=== PATIENT | male | born 1960 | race Hispanic/Latino ===

== ENCOUNTER → 2024-06-20 | Outpatient (CLI) | payer OTHER ==
[2024-06-20 12:18] LABS: ALBUMIN 3.9 g/dL (3.5-5.0); BILIRUBIN,TOTAL 0.6 mg/dL (0.2-1.0); CREATININE 1.1 mg/dL (0.5-1.3); POTASSIUM 4.7 mmol/L (3.5-5.1); TOTAL PROTEIN, SERUM 7.9 g/dL (6.0-8.3)
== END | disposition home or self-care (01) ==
LOC: LAB 08:47
PROVIDERS: ATTEND Internal Medicine Cardiovascular Disease
DX: E78.5 Hyperlipidemia, unspecified (principal); I25.84 Coronary atherosclerosis due to calcified coronary lesion; R09.89 Other specified symptoms and signs involving the circulatory and respiratory systems
CPT/HCPCS: 36415; 80053; 80061

== ENCOUNTER 2024-10-01 10:55 | Inpatient (IN) | payer OTHER ==
[~2024-10-01] VITALS: Ht 170.2 cm; Wt 57.4 kg
--- NOTE | 2024-10-01 11:00 | NUR ---
PT TO CT OF HEAD, AWAKE, ALERT, OX4, REPORTS GENERALIZED WEAKNESS AT THIS TIME
[2024-10-01 11:19] LABS: IMMATURE GRANULOCYTE ABSOLUTE 0.08 K/uL (0-1); NUCLEATED RED BLOOD CELLS 0.0 % (0.0-0.19); PLATELET COUNT (AUTO) 241 K/uL (130-400); RED BLOOD CELL COUNT(AUTO) 5.47 MIL/uL (4.50-6.20); RED CELL DISTRIBUTION WIDTH 13.3 % (11.0-15.5); WHITE BLOOD COUNT (AUTO) 11.0 K/uL (4.8-10.8)
--- NOTE | 2024-10-01 11:20 | HMCIMG ---
EXAM: CT Head Without IV contrast. CLINICAL HISTORY: SLURRED SPEECH TECHNIQUE: Axial computed tomography images of the head/brain without intravenous contrast. COMPARISON: None provided. FINDINGS: BRAIN: No evidence of acute hemorrhage. No mass lesion. No CT evidence for acute territorial infarct. No midline shift or extra-axial collections. VENTRICLES: No hydrocephalus. ORBITS: The orbits are unremarkable. SINUSES AND MASTOIDS: The paranasal sinuses and mastoid air cells are clear. BONES: No fracture. SOFT TISSUES: Unremarkable. IMPRESSION: No acute intracranial abnormality. /[place]
--- NOTE | 2024-10-01 11:23 | NUR ---
tele neuro at bedside evaluating patient
--- NOTE | 2024-10-01 11:32 | CONS ---
CONSULT NOTE: [place] [facility] Note # Demographics Consult Type: Acute Stroke Level 2 (4.5-24 hrs) Patient Location: Emergency Room First Name: WOO Last Name: FER Date of : 1960 Age: 64 Gender: Male Facility: [facility] Time of Initial Page (Central Time): 10/01/2024 11:16 Time of Return Call (Central Time): 10/01/2024 11:17 # HPI Chief Complaint: Unable to get up History: 64 y/o M woke up at 2 AM this morning, rolled over, and couldn't get up from bed. Now feels well. this morning noticed abnormal gait and confusion. # Scores Time of exam and NIHSS (Central Time): 10/01/2024 11:22 Level of Consciousness 1a: [0] = Alert; keenly responsive LOC Questions 1b: [1] = Answers one correctly LOC Commands 1c: [0] = Performs both tasks correctly Best Gaze 2: [0] = Normal Visual 3: [0] = No visual loss Facial Palsy 4: [0] = Normal symmetrical movements Motor Arm Left 5a: [0] = No drift Motor Arm Right 5b: [0] = No drift Motor Leg Left 6a: [0] = No drift Motor Leg Right 6b: [0] = No drift Limb Ataxia 7: [0] = Absent Sensory 8: [0] = Normal Best Language 9: [0] = No aphasia Dysarthria 10: [0] = Normal Extinction and Inattention 11: [0] = No abnormality NIHSS Total: 1 # Data Head CT: - no bleed - per radiologist read # Assessment Impression: Possible TIA/minor stroke, though metabolic encephalopathy also possible. # Plan Thrombolytic/Intervention: NOT IV Thrombolysis or IA Intervention candidate Thrombolytic Exclusion: > 4.5 hours Intraarterial Exclusion: doubt LVO based on clinical exam Other: - If patient has any neurological deterioration please call me back immediately - I have discussed my recommendations with the referring provider Additional Recommendations: Infectious/metabolic per ED/Primary team. Consider brain MRI with further stroke w/u to follow if positive. # Logistics Attestation of consult completion: The patient is located at: [facility]. Facility staff participated in the visit. I performed this telemedicine visit from my offsite office utilizing interactive 2 way audio and visual telecommunication technology. Total time spent in telemedicine encounter: I spent 15 minutes reviewing clinical data and/or imaging, obtaining history, examining the patient, communicating with the onsite care team, and in preparation of this report. # Demographics First Name: WOO Last Name: FER Facility: [facility] BLACK CHAPPELL MD Oct 01, 2024 11:32
[2024-10-01 11:34] LABS: ALCOHOL, BLOOD < 3 mg/dL (0-10); CREATINE KINASE, TOTAL 50 U/L (21-232); CREATININE 1.2 mg/dL (0.5-1.3); GLOMERULAR FILTR. RATE CALC 68 mL/min (>90); SODIUM SERUM 135 mmol/L (136-145); UREA NITROGEN, BLOOD 18 mg/dL (7-18)
[2024-10-01 11:37] LABS: GLUCOSE,RANDOM 445 mg/dL (70-105)
[2024-10-01] MEDS: LACTATED RINGERS 1000ML 1,000 ML IV ONE (12:08)
--- NOTE | 2024-10-01 12:14 | HMCIMG ---
EXAM: CR Chest, 1 View. CLINICAL HISTORY: SLURRED SPEECH COMPARISON: None provided. FINDINGS: LUNGS: The lungs show no infiltrate or other acute finding. PLEURAL SPACES: No pleural effusion or pneumothorax. MEDIASTINUM: The cardiomediastinal silhouette is within normal limits. BONES: No acute osseous abnormality. IMPRESSION: No acute cardiopulmonary pathology is evident. /[place]
[2024-10-01 12:25] LABS: APPEARANCE,URINE CLEAR (CLEAR); GLUCOSE, URINE (UA) >=1000 mg/dL (NEGATIVE); LEUKOCYTE ESTERASE ,URINE 25 Leu/uL (NEGATIVE); NITRATE,URINE NEGATIVE (NEGATIVE); OCCULT BLOOD,URINE NEGATIVE (NEGATIVE); SQUAMOUS EPITHELIAL CELL,UR RARE /HPF (0-2)
[2024-10-01 12:34] LABS: INR 0.99 (0.85-1.15)
--- NOTE | 2024-10-01 13:22 | HMCIMG ---
EXAM: MR Brain without Intravenous Contrast. CLINICAL HISTORY: Stroke. TECHNIQUE: Magnetic resonance images of the brain without intravenous contrast in multiple planes. CONTRAST: None. COMPARISON: 10/01/2024. FINDINGS: BRAIN: No restricted diffusion to indicate acute infarction. No intracranial mass or hemorrhage. No midline shift or extra-axial fluid collection. No cerebellar tonsillar ectopia. No abnormal enhancement. The central arterial and venous flow voids are patent. VENTRICLES: No hydrocephalus. ORBITS: The orbits are normal. SINUSES AND MASTOIDS: Extensive air-fluid levels in the bilateral maxillary and ethmoid sinuses suggest sinusitis. BONES: No acute fracture or focal osseous lesion. COMPARISON: Findings similar to CT head 10/01/2024. IMPRESSION: 1. No acute findings. 2. Extensive air-fluid levels in the bilateral maxillary and ethmoid sinuses suggest sinusitis. /[place]
--- NOTE | 2024-10-01 14:22 | ERN ---
General Chief Complaint: Stroke Symptoms Stated Complaint: STROKE SYMPTOMS Time Seen by MD: 11:13 History of Present Illness Initial Comments 64-year-old male, history of diabetes, high cholesterol, presents for altered mentation. Patient went to bed last night in his normal state of health. Upon awakening this morning, his noticed that he was confused and his entire body was trembling. She said that he was continually reaching towards his feet and appeared confused. She reports that he was very shaky and had a near fall. She reports that he was slurring his words. She did not notice any deficits to arms or legs. No recent head injury. The patient reports recent senstations of weakness and dry mouth. Here in the ER, the patient is answering all questions appropriately but appears to be slow to respond compared to usual. He denies any headache, chest pains, vision changes, or any other complaints at this time. He reports feeling very thirsty. Allergies: Coded Allergies: No Known Drug Allergies (Unverified Allergy, Unknown, 10/01/24) Past Medical History Past Medical History: Diabetes-Type II Past Surgical History: None ROS Dictation CONSTITUTIONAL: weakness, tremors HEAD/FACE: Dry mouth EENT: No eye pain, no blurred vision, no tearing, no double vision, no ear pain, no ear discharge, no nose pain, no nasal congestion, no throat pain, no throat swelling, no mouth pain. RESPIRATORY: No cough, no orthopnea, no SOB, no stridor, no wheezing. CARDIOVASCULAR: No chest pain, no edema, no palpitations, no syncope. GASTROINTESTINAL/ABDOMINAL: No abdominal pain, no constipation, no diarrhea, no nausea, no vomiting. GENITOURINARY: No abnormal discharge, no dysuria, no hematuria. No complaints of pain in the genitals. Frequent urination MUSCULOSKELETAL: No back pain, no gout, no joint pain, no joint swelling, no muscle pain, no muscle stiffness, no neck pain. INTEGUMENTARY: No change in color, no change in hair/nails, no dryness, no lesion, no lumps, no rash. NEUROLOGICAL/PSYCH: No anxiety, not depressed, no emotional problem, no h eadache, no numbness, no pre-existing deficit, no history of seizures, no tremors, no weakness. HEMATOLOGIC/LYMPHATIC: Not anemic, no history of blood clots, no apparent bleeding, no bruising, glands not swollen. All Systems Negative, Except as Noted. NIH STROKE SCALE: NIH STROKE SCALE Response (Comments) Value Level of Consciousness Alert 0 Ask patient month and their age Answers both correct 0 Command to open eyes, make fist and let go Obeys both correct 0 Best gaze (horizontal eye movement) Normal 0 Visual Field Testing No Visual Field Loss 0 Facial Paresis Normal / Symmetrical 0 Motor Function - Left Arm Normal 0 Motor Function - Right Arm Normal 0 Motor Function - Left Leg Normal 0 Motor Function - Right Leg Normal 0 Limb Ataxia No Ataxia 0 Sensory-pin prick to arms, legs, trunk and face Normal 0 Best Language (describe picture, name items and read) No Aphasia 0 Dysarthria (read several words) Normal Articulation 0 Extinction and Inattention Normal 0 Total Results Laboratory and Microbiology Lab and Micro Result Laboratory Tests Test 10/01/24 11:06 10/01/24 11:10 10/01/24 11:50 Whole Blood Glucose 398 MG/DL (70-110) H Bedside Glucose Comment Notified Nurse White Blood Count 11.0 K/uL (4.8-10.8) H Red Blood Count 5.47 MIL/uL (4.50-6.20) Hemoglobin 14.1 g/dL (14.0-18.0) Hematocrit 40.6 % (42-54) L Mean Corpuscular Volume 74.2 fL (79-99) L Mean Corpuscular Hemoglobin 25.8 pg (27.0-33.0) L Mean Corpuscular Hemoglobin Concent 34.7 g/dL (32.0-36.0) Red Cell Distribution Width 13.3 % (11.0-15.5) Platelet Count 241 K/uL (130-400) Mean Platelet Volume 9.1 fL (7.5-10.5) Immature Granulocyte % (Auto) 0.7 % (0-1) Neutrophils (%) (Auto) 86.4 % (40.0-77.0) H Lymphocytes (%) (Auto) 5.9 % (21.0-51.0) L Monocytes (%) (Auto) 6.2 % (3.0-13.0) Eosinophils (%) (Auto) 0.4 % (0.0-8.0) Basophils (%) (Auto) 0.4 % (0.0-5.0) Neutrophils # (Auto) 9.5 K/uL (1.8-7.7) H Lymphocytes # (Auto) 0.7 K/uL (1.0-4.8) L Monocytes # (Auto) 0.7 K/uL (0.1-1.0) Eosinophils # (Auto) 0.04 K/uL (0.00-0.70) Basophils # (Auto) 0.04 K/uL (0.00-0.20) Absolute Immature Granulocyte (auto 0.08 K/uL (0-1) Nucleated Red Blood Cells 0.0 % (0.0-0.19) White Cell Morphology Comment See comments Prothrombin Time 10.5 SEC (9.6-11.6) Prothromb Time International Ratio 0.99 (0.85-1.15) Activated Partial Thromboplast Time 24.7 SEC (26.3-35.5) L Sodium Level 135 mmol/L (136-145) L Potassium Level 4.7 mmol/L (3.5-5.1) Chloride Level 98 mmol/L (101-111) L Carbon Dioxide Level 23 mmol/L (21-32) Blood Urea Nitrogen 18 mg/dL (7-18) Creatinine 1.2 mg/dL (0.5-1.3) Glomerular Filtration Rate Calc 68 mL/min (>90) Random Glucose 445 mg/dL (70-105) *H Whole Blood Ketones Quantitative 3.7 mmol/L (0.0-0.6) H Lactic Acid Level 2.3 mmol/L (0.8-2.5) Total Calcium 9.3 mg/dL (8.5-10.1) Magnesium Level 2.00 mg/dL (1.80-2.40) Ammonia < 10 umol/L (11-32) L Total Creatine Kinase 50 U/L (21-232) Troponin I High Sensitivity 4.0 ng/L (4-75) Serum Alcohol < 3 mg/dL (0-10) Urine Color COLORLESS (YELLOW) Urine Appearance CLEAR (CLEAR) Urine pH 5.0 (5.0-8.0) Urine Specific [place] 1.022 (1.001-1.031) Urine Protein NEGATIVE mg/dL (NEGATIVE) Urine Glucose (UA) >=1000 mg/dL (NEGATIVE) H Urine Ketones 40 mg/dL (NEGATIVE) H Urine Occult Blood NEGATIVE (NEGATIVE) Urine Nitrate NEGATIVE (NEGATIVE) Urine Bilirubin NEGATIVE mg/dL (NEGATIVE) Urine Urobilinogen 0.2 mg/dL (0.2-1.0) Urine Leukocyte Esterase 25 [place]/uL (NEGATIVE) H Urine RBC 2-5 /HPF (0-1) H Urine WBC 2-5 /HPF (0-1) H Urine Squamous Epithelial Cells RARE /HPF (0-2) Urine Bacteria RARE /HPF (None Seen) MDM CC: altered mentation, tremors, generalized weakness Historian: Patient Comorbidities: Diabetes, high cholesterol Limitations by social determinants: None Differential diagnosis: Strokes, metabolic abnormality, infection, other Initially the presentation was unclear. The reports that patient was possibly slurring his words here in the ER. Patient was activated as a Code Brain. Last known well was 09/30/2024 in the evening. Initial NIHSS of 0. GCS of 15 with no cranial nerve deficits. Mild tremors. Vital signs afebrile initially, did develop a fever here in the ER. Other vital signs stable. Spoke with the teleneurologist at 11:25 a.m.. Patient does not appear to be a good candidate for TNK since it is a wake-up stroke, symptoms likely present for longer than 4.5 hours. We do agree that at this time we have a higher suspicion for metabolic disorder than an acute stroke. He does recommend an MRI. Did not need to get CT angiogram at this time. MRI ordered. EKG: Sinus tachycardia rate 104 with a normal axis good R-wave progression intervals are stable no STEMI. Independently interpreted by me. CT head per my independent interpretation shows no acute bleeding. Confirmed by radiologist. Labs (independently ordered and interpreted by me): WBCs 11 left shift no bands. Electrolytes stable. Urinalysis does show glucose some leuk esterase. Chemistry shows hyperglycemia. Treatment in ED: 1 L normal saline, insulin IV Consultation: Hospitalist for admission. ED Course Orders Procedure Category Date Status Time Cbc With Differential LAB 10/01/24 Complete 11:08 12 Lead Ekg Tracing- EKG 10/01/24 Logged Technical 11:08 Chest 1vw RAD 10/01/24 Resulted 11:08 Ct Head/Brain W/O CT 10/01/24 Resulted Contrast 11:08 Alcohol, Blood LAB 10/01/24 Complete 11:11 Ammonia LAB 10/01/24 Complete 11:11 Cardiac Panel LAB 10/01/24 Complete 11:11 Magnesium LAB 10/01/24 Complete 11:11 Prothrombin Time With LAB 10/01/24 Complete INR 11:11 Partial LAB 10/01/24 Complete Thromboplastin Time 11:11 Basic Metabolic Panel LAB 10/01/24 Complete 11:10 Mr Brain Wo Con MRI 10/01/24 Resulted 11:29 Urinalysis LAB 10/01/24 Complete W/Microscopic 11:31 Lactic Acid LAB 10/01/24 Complete 11:31 Blood Cult PREM 10/01/24 In Process 11:31 Ketone Blood LAB 10/01/24 Complete Quantitative 11:31 Lactated Ringers PHA 10/01/24 Complete 1000ml (Lactated 12:00 Insulin Regular, PHA 10/01/24 Complete Human 3ml (Humulin R 12:00 Admit Orders ADM 10/01/24 Transmitted 14:17 Endocrinology Consult CONPHYSVC 10/01/24 Transmitted 14:17 Famotidine 20mg Tab PHA 10/01/24 In Process (Pepcid 20mg Tab) 21:00 Acetaminophen 325 Tab PHA 10/01/24 In Process (Tylenol 325mg Tab 14:30 Ondansetron 4mg Inj PHA 10/01/24 In Process (Zofran 4mg Inj) 14:30 Pt Eval And Treat PT 10/01/24 Transmitted 14:[address] 10/01/24 Transmitted Order 14:17 Initiate BASILIA 10/01/24 In Process Hyperglycemia Protoco 14:17 Insulin Regular, PHA 10/01/24 In Process Human 3ml (Humulin R 16:30 Initiate Po BASILIA 10/01/24 In Process Hypokalemia Protoc 14:17 Potassium Chloride PHA 10/01/24 In Process 20meq/100ml ([place] 14:30 Potassium Chl 10% PHA 10/01/24 In Process Elixir 20meq (Kcl 10% 14:30 Potassium Chloride PHA 10/01/24 In Process 20meq Er (K-Dur/Klor- 14:30 Notify Physician If CPOE 10/01/24 Transmitted There Is 14:17 Notify Md On The Next CPOE 10/01/24 Transmitted 14:17 Notify Md On The CPOE 10/01/24 Transmitted Next(Cont.) 14:17 Magnesium 2gm Premix PHA 10/01/24 In Process 50ml (Magnesium 2gm 14:30 Apply Scds CPOE 10/01/24 Transmitted 14:17 Hydralazine 20mg Inj PHA 10/01/24 In Process (Apresoline 20mg In 14:30 Lactulose 20 Gm/30 Ml PHA 10/01/24 In Process Udcup (Constulose 14:30 Blood Sugar Q3h(Keep CPOE 10/01/24 Transmitted 110-180) 14:24 Current Medications Medications (Trade) Dose Ordered Sig/Loree Route PRN Reason Start Time Stop Time Status Last Admin Dose Admin Acetaminophen (TYLenol 325MG TAB) 650 mg Q4H PRN PO TEMPERATURE GREATER THAN 101.5 10/01/24 14:30 10/31/24 14:29 Famotidine (Pepcid 20mg Tab) 20 mg BID PO 10/01/24 21:00 10/31/24 20:59 UNV Hydralazine HCl (APRESOLine 20MG INJ) 20 mg Q4H PRN IV ADMINISTER FOR SBP > 160 10/01/24 14:30 10/31/24 14:29 Insulin Human Regular (humuLIN R 100 UNIT/ML 3ML) 5 unit ONCE ONCE IV 10/01/24 12:00 10/01/24 12:01 DC 10/01/24 12:12 Insulin Human Regular (humuLIN R 100 UNIT/ML 3ML) INSULIN SLIDING SCAL... ACHS SQ 10/01/24 16:30 10/31/24 16:29 Lactated Ringer's 1,000 ml @ 0 mls/hr ONCE ONCE IV 10/01/24 12:00 10/01/24 12:01 DC 10/01/24 12:08 Lactulose (Constulose 20gm/ 30ml Udcup) 20 gm BID PRN PO CONSTIPATION 10/01/24 14:30 10/31/24 14:29 UNV Magnesium Sulfate 50 ml @ 0 mls/hr PROTOCOL PRN IV LOW MAG LEVEL 10/01/24 14:30 10/31/24 14:29 Ondansetron HCl (zoFRAN 4MG INJ) 4 mg Q6H PRN IVP NAUSEA/VOMITING 10/01/24 14:30 10/31/24 14:29 Potassium Chloride 100 ml @ 100 mls/hr AD PRN IV POTASSIUM PROTOCOL 10/01/24 14:30 10/31/24 14:29 Potassium Chloride (K-Dur/Klor-Con 20meq) 20 meq AD PRN PO POTASSIUM PROTOCOL 10/01/24 14:30 10/31/24 14:29 Potassium Chloride (KCl 10% Elixir 20meq/15ml) 20 meq AD PRN PO POTASSIUM PROTOCOL 10/01/24 14:30 10/31/24 14:29 Vital Signs Date Time Temp Pulse Resp B/P (MAP) Pulse Ox O2 Delivery O2 Flow Rate FiO2 10/01/24 12:26 110 18 127/61 96 Room Air* 0 21 10/01/24 11:19 104 15 147/73 100 Room Air* 0 21 10/01/24 11:00 101.5 110 18 116/67 99 Room Air DX & DISP Disposition: Inpatient Departure Impression: Primary Impression: Hyperglycemia Additional Impression: Encephalopathy Critical Time: 30 minutes (Critical Care Procedure NoteAuthorized and Performed by: meTotal critical care time: Approximately 36 minutesDue to a high probability of clinically significant, life threatening deterioration, the patient required my highest level of preparedness to intervene emergently and I personally spent this critical care time directly and personally managing the patient. This critical care time included obtaining a history; examining the patient; pulse oximetry; ordering and review of studies; arranging urgent treatment with development of a management plan; evaluation of patient's response to treatment; frequent reassessment; and, discussions with other providers.This critical care time was performed to assess and manage the high probability of imminent, life-threatening deterioration that could result in multi-organ failure. It was exclusive of separately billable procedures and treating other patients and teaching time.Please see MDM section and the rest of the note for further information on patient assessment and treatment.) Condition: Stable Referrals: SAKINA HAYS MD (PCP) NATIVIDAD ROSAS DO Oct 01, 2024 14:22
--- NOTE | 2024-10-01 14:28 | HP ---
[facility] HISTORY AND PHYSICAL Date of Service: Oct 01, 2024 Time of Service: 14:22 HISTORY OF PRESENT ILLNESS: [ ] PCP: Flaca Arora MD admission date: 10/01/24 CC: Stroke symptoms: confused This is a 64-year-old male with a significant medical history of diabetes, hyperlipidemia presents in ED with altered mentation. Onset earlier this morning 2:00 a.m. per significant other noticed he was confused and that his body was trembling. He was not his normal self and decided to bring him to ER for further evaluation and workup. There was no focal or sensory deficits on arrival no recent head injury. However patient had dental work cleaning and one implant broke placed with temporary filling done a week ago. Patient is feeling generalized body weakness and dry mouth. He denies headache, chest pain, vision changes or any complaints at the time he came to ER. He reports being very thirsty ER workup CT head was negative. Blood sugars was elevated 445 Ketones Quant: 3.7. Tele neuro was consulted. His evaluation NIHSS was 1, his recommendations possible TIA versus metabolic encephalopathy. 1430 MRI was negative for stroke. Patient now having fevers 101.5 We will do a septic workup, blood cultures in process. Rocephin2 g x 1. Patient was seen in ED patient answer all my questions appropriately. REVIEW OF SYSTEMS a 12 point ROS was obtained all relevant positive documented otherwise ROS negative PAST MEDICAL HISTORY: [ ] Diabetes, hyperlipidemia, hypertension PAST SURGICAL HISTORY: [ ] Negative PAST SOCIAL HISTORY: [ ] Denies smoking tobacco products and alcohol use FAMILY HISTORY: [ ] Diabetes Coded Allergies: No Known Drug Allergies (Unverified Allergy, Unknown, 10/01/24) PHYSICAL EXAM GENERAL APPEARANCE: The patient is awake, alert, and oriented, in no acute cardiopulmonary distress. NEUROLOGICAL: Cranial nerves II-XII grossly intact. Motor is 5/5 in bilateral upper and lower extremities proximal to distal. No sensory deficits. HEENT: Face is symmetric. Pupils are equal and reactive. Extraocular movements are intact. NECK: Supple. No JVD. No thyromegaly. No submental, submandibular, pre- /postauricular, occipital or supraclavicular lymphadenopathy. CHEST: Normal chest expansion. No Telemetry. LUNGS: Absence of any rales, rhonchi or any wheezing. CARDIOVASCULAR: Regular. S1 and S2 normal. No appreciable rubs, murmurs or gallops. ABDOMEN: Soft, nontender, and nondistended. There is no rebound, voluntary guarding, or rigidity. : Deferred. No Castillo. EXTREMITIES: Non-edematous and not cyanotic. No clubbing. Good capillary refill. SKIN: No skin breakdown. Vital Sign (Last 24 Hours) 10/01/24 10/01/24 11:00 12:26 Temp 101.5 Pulse 110 Resp 18 B/P (MAP) 127/61 Pulse Ox 96 O2 Delivery Room Air* O2 Flow Rate 0 FiO2 21 LABS: Laboratory: Test 10/01/24 11:50 10/01/24 11:10 10/01/24 11:06 Range/Units Urine Color COLORLESS YELLOW Urine Appearance CLEAR CLEAR Urine pH 5.0 5.0-8.0 Urine Specific [place] 1.022 1.001-1.031 Urine Protein NEGATIVE NEGATIVE mg/dL Urine Glucose (UA) >=1000 H NEGATIVE mg/dL Urine Ketones 40 H NEGATIVE mg/dL Urine Occult Blood NEGATIVE NEGATIVE Urine Nitrate NEGATIVE NEGATIVE Urine Bilirubin NEGATIVE NEGATIVE mg/dL Urine Urobilinogen 0.2 0.2-1.0 mg/dL Urine Leukocyte Esterase 25 H NEGATIVE Brannon/uL Urine RBC 2-5 H 0-1 /HPF Urine WBC 2-5 H 0-1 /HPF Urine Squamous Epithelial Cells RARE 0-2 /HPF Urine Bacteria RARE None Seen /HPF White Blood Count 11.0 H 4.8-10.8 K/uL Red Blood Count 5.47 4.50-6.20 MIL/uL Hemoglobin 14.1 14.0-18.0 g/dL Hematocrit 40.6 L 42-54 % Mean Corpuscular Volume 74.2 L 79-99 fL Mean Corpuscular Hemoglobin 25.8 L 27.0-33.0 pg Mean Corpuscular Hemoglobin Concent 34.7 32.0-36.0 g/dL Red Cell Distribution Width 13.3 11.0-15.5 % Platelet Count 241 130-400 K/uL Mean Platelet Volume 9.1 7.5-10.5 fL Immature Granulocyte % (Auto) 0.7 0-1 % Neutrophils (%) (Auto) 86.4 H 40.0-77.0 % Lymphocytes (%) (Auto) 5.9 L 21.0-51.0 % Monocytes (%) (Auto) 6.2 3.0-13.0 % Eosinophils (%) (Auto) 0.4 0.0-8.0 % Basophils (%) (Auto) 0.4 0.0-5.0 % Neutrophils # (Auto) 9.5 H 1.8-7.7 K/uL Lymphocytes # (Auto) 0.7 L 1.0-4.8 K/uL Monocytes # (Auto) 0.7 0.1-1.0 K/uL Eosinophils # (Auto) 0.04 0.00-0.70 K/uL Basophils # (Auto) 0.04 0.00-0.20 K/uL Absolute Immature Granulocyte (auto 0.08 0-1 K/uL Nucleated Red Blood Cells 0.0 0.0-0.19 % White Cell Morphology Comment See comments Prothrombin Time 10.5 9.6-11.6 SEC Prothromb Time International Ratio 0.99 0.85-1.15 Activated Partial Thromboplast Time 24.7 L 26.3-35.5 SEC Sodium Level 135 L 136-145 mmol/L Potassium Level 4.7 3.5-5.1 mmol/L Chloride Level 98 L 101-111 mmol/L Carbon Dioxide Level 23 21-32 mmol/L Blood Urea Nitrogen 18 7-18 mg/dL Creatinine 1.2 0.5-1.3 mg/dL Glomerular Filtration Rate Calc 68 >90 mL/min Random Glucose 445 *H 70-105 mg/dL Whole Blood Ketones Quantitative 3.7 H 0.0-0.6 mmol/L Lactic Acid Level 2.3 0.8-2.5 mmol/L Total Calcium 9.3 8.5-10.1 mg/dL Magnesium Level 2.00 1.80-2.40 mg/dL Ammonia < 10 L 11-32 umol/L Total Creatine Kinase 50 21-232 U/L Troponin I High Sensitivity 4.0 4-75 ng/L Serum Alcohol < 3 0-10 mg/dL Whole Blood Glucose 398 H 70-110 MG/DL Bedside Glucose Comment Notified Nurse DIAGNOSTICS / RADIOLOGY: [ ] ASSESSMENT: SIRs without organ dysfunction POA suspecting Sepsis POA febrile syndrome POA UTI POA Metabolic encephalopathy POA TIA rule out CVA POA uncontrolled DM type II hyperglycemia POA PLAN: [ ] Admit:PCCU condition:Guarded Status: FUll COde IVF:NS at 75 ml/hr Consultants; Tele Neuro, Screen And [employer]r antibiotics: Rocephin 2 gm now then 1 gm daily; will follow up blood cultures Sepsis workup: PCR: covid, influenza a/b, and strep B, UA Microbiology: blood cultures in process Imaging: carotid Doppler, Noted CT Head, MRI: both negative PT eval, Speech eval Labs cbc, cmp, mag+ Tsh , lipid panel, A1c blood sugar q3 ; Replace electrolytes as needed as per protocol to keep potassium above 4.0 magnesium 2.0. Home medications pending to be reviewed by RN nurse. PRN: MEDICATIONS Tylenol 650 mg po every 4 hrs for fever Zofran 4 mg IV every 6 hrs for n/v Hydralazine 5 mg IV every 4 hrs systolic pressure > 160 bowel regiment: lactulose 20 gm PO BID PRN constipation aspiration precaution ,HOB elevated fall precaution call light in reach. Supportive measures: DVT ppx, GI ppx all questions answered time spent: > 35 min Supervising MD: Dr. Castro c/d This document was generated in part using voice recognition software, occasional wrong word or sound alike substitutions may have occurred due to the inherent limitations of voice recognition software. Read the chart carefully and recognize using context, where the substitutions have occurred. Although every effort was made to edit the content, physician scribe and typing errors may occur ATTESTATION BY PHYSICIAN I have seen and examined the patient. I reviewed the documentation, medical decision making, and treatment plan as noted by the mid-level provider above. I agree with the findings and plan of care. CLOVER CASTRO MD ATTESTATION BY PHYSICIAN I have seen and examined the patient. I reviewed the documentation, medical decision making, and treatment plan as noted by the mid-level provider above. I agree with the findings and plan of care. CLOVER CASTRO MD, ELIZABETH NP Oct 01, 2024 14:28
[2024-10-01] MEDS ORDERED: PoTASSium chloRIDE 20MEQ ER 20 MEQ ERTAB PO PRN (14:30)
[2024-10-01] MEDS ORDERED: LACTULOSE 20 GM/30 ML UDCUP PO PRN (14:30)
[2024-10-01] MEDS ORDERED: PoTASSium chl 10% ELIXIR 20MEQ 20 MEQ/15 ML UDCUP PO PRN (14:30)
[2024-10-01] MEDS ORDERED: MAGNESIUM 2GM PREMIX 50ML 50 ML IV PRN (14:30)
[2024-10-01] MEDS: 0.9%NACL 1000ML 1,000 ML IV SCH (15:32)
[2024-10-01 16:18] LABS: INFLUENZA TYPE A Negative For Type A (NEGATIVE); INFLUENZA TYPE B Negative For Type B (NEGATIVE)
[2024-10-01 16:27] LABS: COVID19 (SARS ANTIGEN RAPID) POSITIVE FOR SARS AG (NEGATIVE)
--- NOTE | 2024-10-01 16:30 | NUR ---
BEDSIDE SWALLOW EVAL COMPLETED. No s/s of aspiration. Recommend regular solids, thin liquids and pills whole with liquids as tolerated. DIRECTOR OF RECRUITING reviewed results and recommendations with patient, and nurse Adolfo. DIRECTOR OF RECRUITING educated patient on risks and consequences of aspiration. Speech therapy not warranted at this time. All questions answered. Addendum: 10/01/[address] [facility] Amended: Links added.
--- NOTE | 2024-10-01 16:35 | NUR ---
SPEECH, LANGUAGE, AND COGNITIVE LINGUISTIC EVALUATION COMPLETED. Pt AT BASELINE EVALUATION: Pt AAOX4. PER , PATIENT IS AT BASELINE WITH COGNITION. REPORTS THAT FOR A FEW MONTHS AGO ALREADY, PATIENT OCCASIONALLY FORGETS TOPICS OF CONVERSATIONS THEY PREVIOUSLY HAD. FOOD SCIENCE TECHNICIAN RECOMMENDED PATIENT TO SEEK MD CONSULT WITH NEUROLOGIST OUTPATIENT TO FURTHER EVALUATE SLOW PROGRESSION OF SHORT TERM MEMORY DEFICITS. DURING EVALUATION, Pt EFFECTIVELY EXPRESSED WANTS AND NEEDS WITH CLEAR SPEECH INTELLIGIBILITY. Pt FOLLOWED BASIC 1-2 STEP COMMANDS, ANSWERED WH QUESTIONS, AND RESPONDED APPROPRIATELY TO YES/NO QUESTIONS. Pt's SPEECH, LANGUAGE, AND COGNITIVE LINGUISTIC SKILLS ARE CURRENTLY AT BASELINE PRIOR LEVEL OF FUNCTION. SKILLED ST SERVICES NOT WARRANTED AT THIS TIME. FOOD SCIENCE TECHNICIAN REVIEWED RESULTS AND RECOMMENDATIONS WITH PATIENT, FAMILY MEMBER, AND NURSE EWELINA. ALL QUESTIONS ANSWERED AT THIS TIME. Addendum: 10/02/[address] Amended: Links added.
--- NOTE | 2024-10-01 16:37 | NUR ---
DCP: HOME Pt currently lives with sps in their home. Pt does not have any DME, home health, or provider services. Pt states that he complete ADLs independently. PCP is Ulysses Thayer and uses [facility] for any RX needs. At [place] pt will want to go home and family can assist with transportation. Addendum: 10/01/24 at 1641 by JANE SILVERMAN SS Amended: Links added.
[2024-10-01 17:55] VITALS: BP 110/61; PULSE 92; RESP 18; TEMP 98.4
[2024-10-01 18:11] VITALS: O2SAT 98
[2024-10-01] MEDS ORDERED: EMPA25TA PO (18:42)
[2024-10-01] MEDS ORDERED: METF-446 PO (18:42)
[2024-10-01] MEDS ORDERED: INSU3INS3 SQ (18:45)
[2024-10-01] MEDS ORDERED: CALC-866 PO (18:45)
[2024-10-01] MEDS ORDERED: OMEG100033 PO (18:45)
[2024-10-01] MEDS ORDERED: ASPI-1197 PO (18:45)
[2024-10-01] MEDS ORDERED: ROSU5TAB51 PO (18:46)
[2024-10-01 20:00] VITALS: O2SAT 98
[2024-10-01 20:12] VITALS: BP 133/61; PULSE 95; RESP 18; TEMP 98.4
[2024-10-01] MEDS: FAMOTIDINE 20MG TAB PO SCH (20:53)
[2024-10-01 21:38] VITALS: TEMP 98.9
[2024-10-02] VITALS (9 sets, daily range): BP systolic 111–128; BP diastolic 58–88; PULSE 52–90; RESP 18–20; TEMP 97.9–99; O2SAT 97–100
[2024-10-02 04:37] LABS: LDL DIRECT 40.0 mg/dL (0-99)
--- NOTE | 2024-10-02 06:21 | PN ---
[facility] PROGRESS NOTE Date of Service: Oct 02, 2024 Time of Service: 06:19 SUBJECTIVE: [ ] PCP: Flaca Arora MD admission date: 10/01/24 CC: Stroke symptoms: confused This is a 64-year-old male with a significant medical history of diabetes, hyperlipidemia presents in ED with altered mentation. Onset earlier this morning 2:00 a.m. per significant other noticed he was confused and that his body was trembling. He was not his normal self and decided to bring him to ER for further evaluation and workup. There was no focal or sensory deficits on arrival no recent head injury. However patient had dental work cleaning and one implant broke placed with temporary filling done a week ago. Patient is feeling generalized body weakness and dry mouth. He denies headache, chest pain, vision changes or any complaints at the time he came to ER. He reports being very thirsty ER workup CT head was negative. Blood sugars was elevated 445 Ketones Quant: 3.7. Tele neuro was consulted. His evaluation NIHSS was 1, his recommendations possible TIA versus metabolic encephalopathy. 10/02 patient tested positive for COVID-19. Negative for influenza a and B and strep. No fevers overnight room. Patient alert oriented x3. waiting for blood cultures. Given to extensive sinuitis we will get CT maxillofacial without contrast. REVIEW OF SYSTEMS a 12 point ROS was obtained all relevant positive documented otherwise ROS negative PHYSICAL EXAM GENERAL APPEARANCE: The patient is awake, alert, and oriented, in no acute cardiopulmonary distress. NEUROLOGICAL: Cranial nerves II-XII grossly intact. Motor is 5/5 in bilateral upper and lower extremities proximal to distal. No sensory deficits. HEENT: Face is symmetric. Pupils are equal and reactive. Extraocular movements are intact. NECK: Supple. No JVD. No thyromegaly. No submental, submandibular, pre- /postauricular, occipital or supraclavicular lymphadenopathy. CHEST: Normal chest expansion. No Telemetry. LUNGS: Absence of any rales, rhonchi or any wheezing. CARDIOVASCULAR: Regular. S1 and S2 normal. No appreciable rubs, murmurs or g allops. ABDOMEN: Soft, nontender, and nondistended. There is no rebound, voluntary gua rding, or rigidity. : Deferred. No Castillo. EXTREMITIES: Non-edematous and not cyanotic. No clubbing. Good capillary refill. SKIN: No skin breakdown. Vital Signs (last 8hr) Date Time Temp Pulse Resp B/P (MAP) Pulse Ox O2 Delivery O2 Flow Rate FiO2 10/02/24 05:08 98.6 90 18 121/60 96 Room Air 10/02/24 00:00 98.6 90 18 128/59 97 Room Air LABS: Laboratory: Test 10/02/24 05:35 10/02/24 03:43 10/01/24 15:40 10/01/24 15:35 Range/Units Whole Blood Glucose 143 #H 70-110 MG/DL Triglycerides Level 51 30-200 mg/dL Cholesterol Level 95 <200 mg/dL LDL Cholesterol 40 0-99 mg/dL HDL Cholesterol 48 29-71 mg/dL Thyroid Stimulating Hormone (TSH) 1.81 0.36-3.74 uIU/mL Lactic Acid Level 2.3 0.8-2.5 mmol/L Influenza Type A Antigen Negative For Type A NEGATIVE Influenza Type B Antigen Negative For Type B NEGATIVE SARS-CoV-2 Antigen (Rapid) POSITIVE FOR SARS AG *A NEGATIVE Group A Streptococcus Rapid negative NEGATIVE Test 10/01/24 11:50 10/01/24 11:10 10/01/24 11:06 Range/Units Urine Color COLORLESS YELLOW Urine Appearance CLEAR CLEAR Urine pH 5.0 5.0-8.0 Urine Specific [place] 1.022 1.001-1.031 Urine Protein NEGATIVE NEGATIVE mg/dL Urine Glucose (UA) >=1000 H NEGATIVE mg/dL Urine Ketones 40 H NEGATIVE mg/dL Urine Occult Blood NEGATIVE NEGATIVE Urine Nitrate NEGATIVE NEGATIVE Urine Bilirubin NEGATIVE NEGATIVE mg/dL Urine Urobilinogen 0.2 0.2-1.0 mg/dL Urine Leukocyte Esterase 25 H NEGATIVE [place]/uL Urine RBC 2-5 H 0-1 /HPF Urine WBC 2-5 H 0-1 /HPF Urine Squamous Epithelial Cells RARE 0-2 /HPF Urine Bacteria RARE None Seen /HPF White Blood Count 11.0 H 4.8-10.8 K/uL Red Blood Count 5.47 4.50-6.20 MIL/uL Hemoglobin 14.1 14.0-18.0 g/dL Hematocrit 40.6 L 42-54 % Mean Corpuscular Volume 74.2 L 79-99 fL Mean Corpuscular Hemoglobin 25.8 L 27.0-33.0 pg Mean Corpuscular Hemoglobin Concent 34.7 32.0-36.0 g/dL Red Cell Distribution Width 13.3 11.0-15.5 % Platelet Count 241 130-400 K/uL Mean Platelet Volume 9.1 7.5-10.5 fL Immature Granulocyte % (Auto) 0.7 0-1 % Neutrophils (%) (Auto) 86.4 H 40.0-77.0 % Lymphocytes (%) (Auto) 5.9 L 21.0-51.0 % Monocytes (%) (Auto) 6.2 3.0-13.0 % Eosinophils (%) (Auto) 0.4 0.0-8.0 % Basophils (%) (Auto) 0.4 0.0-5.0 % Neutrophils # (Auto) 9.5 H 1.8-7.7 K/uL Lymphocytes # (Auto) 0.7 L 1.0-4.8 K/uL Monocytes # (Auto) 0.7 0.1-1.0 K/uL Eosinophils # (Auto) 0.04 0.00-0.70 K/uL Basophils # (Auto) 0.04 0.00-0.20 K/uL Absolute Immature Granulocyte (auto 0.08 0-1 K/uL Nucleated Red Blood Cells 0.0 0.0-0.19 % White Cell Morphology Comment See comments Prothrombin Time 10.5 9.6-11.6 SEC Prothromb Time International Ratio 0.99 0.85-1.15 Activated Partial Thromboplast Time 24.7 L 26.3-35.5 SEC Sodium Level 135 L 136-145 mmol/L Potassium Level 4.7 3.5-5.1 mmol/L Chloride Level 98 L 101-111 mmol/L Carbon Dioxide Level 23 21-32 mmol/L Blood Urea Nitrogen 18 7-18 mg/dL Creatinine 1.2 0.5-1.3 mg/dL Glomerular Filtration Rate Calc 68 >90 mL/min Random Glucose 445 *H 70-105 mg/dL Whole Blood Ketones Quantitative 3.7 H 0.0-0.6 mmol/L Total Calcium 9.3 8.5-10.1 mg/dL Magnesium Level 2.00 1.80-2.40 mg/dL Ammonia < 10 L 11-32 umol/L Total Creatine Kinase 50 21-232 U/L Troponin I High Sensitivity 4.0 4-75 ng/L Serum Alcohol < 3 0-10 mg/dL Bedside Glucose Comment Notified Nurse Current Medications Medications (Trade) Dose Ordered Sig/Loree Route PRN Reason Start Time Stop Time Status Last Admin Dose Admin Acetaminophen (TYLenol 325MG TAB) 650 mg Q4H PRN PO TEMPERATURE GREATER THAN 101.5 10/01/24 14:30 10/31/24 14:29 10/01/24 21:38 650 MG Ceftriaxone Sodium (ROCEphine 1G INJ) 1 gm Q24H IVPB 10/02/24 15:00 10/12/24 14:59 Famotidine (Pepcid 20mg Tab) 20 mg BID PO 10/01/24 21:00 10/31/24 20:59 10/01/24 20:53 20 MG Hydralazine HCl (APRESOLine 20MG INJ) 20 mg Q4H PRN IV ADMINISTER FOR SBP > 160 10/01/24 14:30 10/31/24 14:29 Insulin Human Regular (humuLIN R 100 UNIT/ML 3ML) INSULIN SLIDING SCAL... ACHS SQ 10/01/24 16:30 10/31/24 16:29 10/01/24 21:01 14 UNIT Lactulose (Constulose 20gm/ 30ml Udcup) 20 gm BID PRN PO CONSTIPATION 10/01/24 14:30 10/31/24 14:29 Magnesium Sulfate 50 ml @ 0 mls/hr PROTOCOL PRN IV LOW MAG LEVEL 10/01/24 14:30 10/31/24 14:29 Ondansetron HCl (zoFRAN 4MG INJ) 4 mg Q6H PRN IVP NAUSEA/VOMITING 10/01/24 14:30 10/31/24 14:29 Potassium Chloride 100 ml @ 100 mls/hr AD PRN IV POTASSIUM PROTOCOL 10/01/24 14:30 10/31/24 14:29 Potassium Chloride (K-Dur/Klor-Con 20meq) 20 meq AD PRN PO POTASSIUM PROTOCOL 10/01/24 14:30 10/31/24 14:29 Potassium Chloride (KCl 10% Elixir 20meq/15ml) 20 meq AD PRN PO POTASSIUM PROTOCOL 10/01/24 14:30 10/31/24 14:29 Sodium Chloride 1,000 ml @ 75 mls/hr [id number] IV 10/01/24 15:30 10/31/24 15:29 10/01/24 20:53 75 MLS/HR DIAGNOSTICS / RADIOLOGY: [ ] ASSESSMENT: SIRs without organ dysfunction POA multifocal Anemia suspecting Sepsis POA febrile syndrome POA covid 19 infection POA UTI POA Metabolic encephalopathy POA TIA ruled out CVA POA uncontrolled DM type II hyperglycemia POA PLAN: [ ] Admit:PCCU condition:Guarded Status: FUll COde IVF:[facility] Consultants; Tele Neuro, [employer] antibiotics: Rocephin 2 gm now then 1 gm daily; Imaging; CT Maxillofacial without contrast Microbiology: blood cultures in process Imaging: carotid Doppler, noted PT eval, Speech eval Labs cbc, cmp, mag+ in am anemia workup: and OB stool x1 A.c. HS monitoring with sliding scale coverage Replace electrolytes as needed as per protocol to keep potassium above 4.0 magnesium 2.0. Home medications pending to be reviewed by RN nurse. aspiration precaution ,HOB elevated fall precaution call light in reach. Supportive measures: DVT ppx, GI ppx all questions answered Supervising MD: Dr. Castro c/d This document was generated in part using voice recognition software, occasional wrong word or sound alike substitutions may have occurred due to the inherent limitations of voice recognition software. Read the chart carefully and recognize using context, where the substitutions have occurred. Although every effort was made to edit the content, director of business operations and typing errors may occur ATTESTATION BY PHYSICIAN I have seen and examined the patient. I reviewed the documentation, medical decision making, and treatment plan as noted by the mid-level provider above. I agree with the findings and plan of care. CLOVER CASTRO MD, ELIZABETH NP Oct 02, 2024 06:21
[2024-10-02 06:33] LABS: IMMATURE GRANULOCYTE ABSOLUTE 0.02 K/uL (0-1); NUCLEATED RED BLOOD CELLS 0.0 % (0.0-0.19); PLATELET COUNT (AUTO) 226 K/uL (130-400); RED BLOOD CELL COUNT(AUTO) 4.79 MIL/uL (4.50-6.20); RED CELL DISTRIBUTION WIDTH 13.5 % (11.0-15.5); WHITE BLOOD COUNT (AUTO) 7.7 K/uL (4.8-10.8)
[2024-10-02 06:45] LABS: ASPARTATE AMINOTRANSFERASE 27.0 U/L (10-37); CREATININE 1.1 mg/dL (0.5-1.3); GLOMERULAR FILTR. RATE CALC 75.0 mL/min (>90); GLUCOSE,RANDOM 109.0 mg/dL (70-105); SODIUM SERUM 138.0 mmol/L (136-145); TOTAL PROTEIN, SERUM 6.6 g/dL (6.0-8.3); UREA NITROGEN, BLOOD 16.0 mg/dL (7-18)
--- NOTE | 2024-10-02 07:11 | CONS ---
CONSULT NOTE: Endocrinology Consult Chief complaint: altered mental status Reason for consult: uncontrolled dm-2 DOS:10/02/24 HISTORY OF PRESENT ILLNESS: This is a 64-year-old male with a significant medical history of diabetes, hyperlipidemia presents in ED with altered mentation. Patient is feeling generalized body weakness and dry mouth. He denies headache, chest pain, vision changes or any complaints at the time he came to ER. He reports be ing very thirsty ER workup CT head was negative. Blood sugars was elevated 445 Ketones Quant: 3.7. Tele neuro was consulted. His evaluation NIHSS was 1, his recommendations possible TIA versus metabolic encephalopathy. 1430 MRI was negative for stroke. Patient had fevers 101.5 glucose are running high, so insulin adjusted. Home diabetic regimen:metformin 500 mg bid and jardiance 25 mg daily. previous he used to be on insulin but non-compliant. he has lost 30 lbs weight likely due to uncontrolled dm-2 vs other etiology. thyroid function is normal. TSH 1.8 and vitamin b 12 >400 REVIEW OF SYSTEMS a 12 point ROS was obtained and ROS negative PAST MEDICAL HISTORY: [ ] Diabetes, hyperlipidemia, hypertension PAST SURGICAL HISTORY: [ ] Negative PAST SOCIAL HISTORY: [ ] Denies smoking tobacco products and alcohol use FAMILY HISTORY: [ ] Diabetes Coded Allergies: No Known Drug Allergies (Unverified Allergy, Unknown, 10/01/24) PHYSICAL EXAM GENERAL APPEARANCE: The patient is awake, alert, and oriented, in no acute cardiopulmonary distress. NEUROLOGICAL: Cranial nerves II-XII grossly intact. Motor is 5/5 in bilateral upper and lower extremities proximal to distal. No sensory deficits. HEENT: Face is symmetric. Pupils are equal and reactive. Extraocular movements are intact. NECK: Supple. No JVD. No thyromegaly. No submental, submandibular, pre- /postauricular, occipital or supraclavicular lymphadenopathy. CHEST: Normal chest expansion. No Telemetry. LUNGS: Absence of any rales, rhonchi or any wheezing. CARDIOVASCULAR: Regular. S1 and S2 normal. No appreciable rubs, murmurs or gallops. ABDOMEN: Soft, nontender, and nondistended. There is no rebound, voluntary guarding, or rigidity. : Deferred. No Castillo. EXTREMITIES: Non-edematous and not cyanotic. No clubbing. Good capillary refill. SKIN: No skin breakdown. ASSESSMENT: uncontrolled DM type II hyperglycemia POA Home diabetic regimen:metformin 500 mg bid and jardiance 25 mg daily. previous he used to be on insulin but non-compliant. he has lost 30 lbs weight likely due to uncontrolled dm-2 vs other etiology. thyroid function is normal. SIRs without organ dysfunction POA suspecting Sepsis POA febrile syndrome POA UTI POA Metabolic encephalopathy POA TIA rule out CVA POA PLAN: continue lantus 15 units bid and adjust for fasting glucose. increase Regular insulin to 7 units before meals three times daily and adjust for post-prandial glucose. Continue medium dose sliding scale insulin. Monitor glucose q x 6 hourly. Continue carb consistent diet. Keep glucose less than 180 mg/dl. Patient will need lantus 30 units daily and humalog 5 - 10 units tid before meals at discharge. insulin and supplies prescriptions given to nurse. Thanks for allowing me to participate in patient care and will continue to follow up. Vital Signs 10/01/24 10/02/24 20:00 05:08 Temp 98.6 Pulse 90 Resp 18 B/P (MAP) 121/60 Pulse Ox 96 O2 Delivery Room Air O2 Flow Rate 0 FiO2 21 Hematology Labs: Test 10/02/24 03:43 10/01/24 11:10 Range/Units White Blood Count 7.7 # 4.8-10.8 K/uL Red Blood Count 4.79 4.50-6.20 MIL/uL Hemoglobin 12.3 L 14.0-18.0 g/dL Hematocrit 36.0 L 42-54 % Mean Corpuscular Volume 75.2 L 79-99 fL Mean Corpuscular Hemoglobin 25.7 L 27.0-33.0 pg Mean Corpuscular Hemoglobin Concent 34.2 32.0-36.0 g/dL Red Cell Distribution Width 13.5 11.0-15.5 % Platelet Count 226 130-400 K/uL Mean Platelet Volume 9.5 7.5-10.5 fL Immature Granulocyte % (Auto) 0.3 0-1 % Neutrophils (%) (Auto) 64.2 40.0-77.0 % Lymphocytes (%) (Auto) 20.3 L 21.0-51.0 % Monocytes (%) (Auto) 14.7 H 3.0-13.0 % Eosinophils (%) (Auto) 0.1 0.0-8.0 % Basophils (%) (Auto) 0.4 0.0-5.0 % Neutrophils # (Auto) 4.9 1.8-7.7 K/uL Lymphocytes # (Auto) 1.6 1.0-4.8 K/uL Monocytes # (Auto) 1.1 H 0.1-1.0 K/uL Eosinophils # (Auto) 0.01 0.00-0.70 K/uL Basophils # (Auto) 0.03 0.00-0.20 K/uL Absolute Immature Granulocyte (auto 0.02 0-1 K/uL Nucleated Red Blood Cells 0.0 0.0-0.19 % White Cell Morphology Comment See comments Chemistry Labs: Test 10/02/24 05:35 10/02/24 03:43 10/01/24 15:40 10/01/24 11:10 Range/Units Whole Blood Glucose 143 #H 70-110 MG/DL Sodium Level 138 136-145 mmol/L Potassium Level 4.4 3.5-5.1 mmol/L Chloride Level 105 101-111 mmol/L Carbon Dioxide Level 21 21-32 mmol/L Blood Urea Nitrogen 16 7-18 mg/dL Creatinine 1.1 0.5-1.3 mg/dL Glomerular Filtration Rate Calc 75 >90 mL/min Random Glucose 109 #H 70-105 mg/dL Total Calcium 8.5 8.5-10.1 mg/dL Magnesium Level 1.90 1.80-2.40 mg/dL Total Bilirubin 0.4 0.2-1.0 mg/dL Aspartate Amino Transf (AST/SGOT) 27 10-37 U/L Alanine Aminotransferase (ALT/SGPT) 21 12-78 U/L Alkaline Phosphatase 98 50-136 U/L Total Protein 6.6 6.0-8.3 g/dL Albumin 3.1 L 3.5-5.0 g/dL Triglycerides Level 51 30-200 mg/dL Cholesterol Level 95 <200 mg/dL LDL Cholesterol 40 0-99 mg/dL HDL Cholesterol 48 29-71 mg/dL Thyroid Stimulating Hormone (TSH) 1.81 0.36-3.74 uIU/mL Lactic Acid Level 2.3 0.8-2.5 mmol/L Whole Blood Ketones Quantitative 3.7 H 0.0-0.6 mmol/L Ammonia < 10 L 11-32 umol/L Total Creatine Kinase 50 21-232 U/L Troponin I High Sensitivity 4.0 4-75 ng/L Test 10/01/24 11:06 Range/Units Bedside Glucose Comment Notified Nurse Coagulation Labs: Test 10/01/24 11:10 Range/Units Prothrombin Time 10.5 9.6-11.6 SEC Prothromb Time International Ratio 0.99 0.85-1.15 Activated Partial Thromboplast Time 24.7 L 26.3-35.5 SEC Current Medications Medications (Trade) Dose Ordered Sig/Loree Route Start Time Stop Time Status Last Admin Dose Admin Ceftriaxone Sodium (ROCEphine 1G INJ) 1 gm Q24H IVPB 10/02/24 15:00 10/12/24 14:59 Famotidine (Pepcid 20mg Tab) 20 mg BID PO 10/01/24 21:00 10/31/24 20:59 10/01/24 20:53 20 MG Insulin Human Regular (humuLIN R 100 UNIT/ML 3ML) INSULIN SLIDING SCAL... ACHS SQ 10/01/24 16:30 10/31/24 16:29 10/01/24 21:01 14 UNIT Sodium Chloride 1,000 ml @ 75 mls/hr [id number] IV 10/01/24 15:30 10/31/24 15:29 10/01/24 20:53 75 MLS/HR CLARITA GALE MD Oct 02, 2024 07:11
--- NOTE | 2024-10-02 07:40 | EKG ---
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
--- NOTE | 2024-10-02 07:41 | HMCIMG ---
EXAMINATION: DUPLEX ULTRASOUND EXAMINATION OF THE BILATERAL CAROTID AND VERTEBRAL ARTERIES. CLINICAL HISTORY: Dizziness. COMPARISON: MRI brain without contrast from the same day. TECHNIQUE: Real-time ultrasound scan of the bilateral carotid and vertebral arteries, 2-D grayscale, with color Doppler flow and spectral waveform analysis. FINDINGS: Color and spectral Doppler interrogation of the carotid vessels on the right demonstrate peak systolic velocities as follows: CCA (Proximal and distal): 118 and 112 cm/s respectively. Bulb: 86 cm/s. ECA: 145 cm/s. ICA (Proximal, mid, and distal): 72, 110, and 96 cm/s respectively. Vertebral artery demonstrates antegrade flow: 70 cm/s. Right ICA/CCA ratio: 0.9 Peak systolic velocities on the left are as follows: CCA (Proximal and distal): 90 and 120 cm/s respectively. Bulb: 112 cm/s. ECA: 130 cm/s. ICA (Proximal, mid, and distal): 108, 86, and 102 cm/s respectively. Vertebral artery demonstrates antegrade flow: 72 cm/s. Left ICA/CCA ratio: 0.9 Both the common carotid arteries and their branches reveal mild intimal thickening. There are calcified plaques in the bilateral carotid bulb without significant stenosis. IMPRESSION: Mild intimal thickening in the bilateral carotid arteries and their branches. Calcified plaques in the bilateral carotid bulb without significant stenosis. There is no significant flow limiting lesions in the remainder of the arteries. /[place]
[2024-10-02 12:50] LABS: % IRON SATURATION 8.2 % (30-44); IRON, SERUM 24.0 mcg/dL (65-175)
[2024-10-02] MEDS ORDERED: INSULIN GLARGINE HUM REC ANLOG 15 UNIT SQ SCH (21:00)
[2024-10-02] MEDS ORDERED: [UNRECOGNIZED DRUG - OTHER] SQ SCH (21:00)
[2024-10-03 03:00] VITALS: BP 122/65; PULSE 63; RESP 18; TEMP 98
--- NOTE | 2024-10-03 07:18 | HMCIMG ---
EXAMINATION: CT Maxillofacial Without IV contrast CLINICAL HISTORY: Patient presents with suspected extensive sinusitis. COMPARISON: None provided. TECHNIQUE: Axial computed tomography images of the face without intravenous contrast. Sagittal and coronal reformatted images were generated. CONTRAST: None. FINDINGS: FACIAL BONES/ORBITS: No acute fracture or aggressive appearing osseous lesion. The mandible is intact. The orbits are normal. No retrobulbar hematoma or mass. PARANASAL SINUSES AND NASAL CAVITY: Extensive mucosal thickening in the bilateral maxillary sinuses with bilateral maxillary ostial obstruction and occlusion of the ostiomeatal units. Polypoidal extension of the mucosal thickening from the left maxillary sinus into the left middle meatus with further extension into the left nasal cavity. Mucosal thickening in bilateral ethmoid sinuses involving both anterior and posterior ethmoid air cells. 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 Bilateral inferior turbinate hypertrophy. Minimal deviation of the nasal septum toward the left. SOFT TISSUES: No radiopaque foreign body or focal fluid collection. BONES: Multilevel degenerative changes in the spine. IMPRESSION: Extensive bilateral maxillary sinus mucosal thickening with maxillary ostial obstruction and ostiomeatal unit occlusion. Polypoidal extension from the left maxillary sinus into the left middle meatus and left nasal cavity. Mucosal thickening in anterior and posterior ethmoid air cells bilaterally. 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 Bilateral inferior turbinate hypertrophy and minimal nasal septal deviation to the left. /[place]
[2024-10-03 07:53] VITALS: BP 132/79; PULSE 60; RESP 20; TEMP 97.9
[2024-10-03] MEDS ORDERED: AMOX1TAB16 PO (08:54)
[2024-10-03] MEDS: (Cholecalciferol (Vitamin D3) (Vitamin D3) 1 TAB) PO SCH (09:00)
--- NOTE | 2024-10-03 09:06 | DS ---
Discharge Summary Hospital Course Summary: PCP: Flaca Arora MD admission date: 10/01/24 CC: Stroke symptoms: confused This is a 64-year-old male with a significant medical history of diabetes, hyperlipidemia presents in ED with altered mentation. Onset earlier this morning 2:00 a.m. per significant other noticed he was confused and that his body was trembling. He was not his normal self and decided to bring him to ER for further evaluation and workup. There was no focal or sensory deficits on arrival no recent head injury. However patient had dental work cleaning and one implant broke placed with temporary filling done a week ago. Patient is feeling generalized body weakness and dry mouth. He denies headache, chest pain, vision changes or any complaints at the time he came to ER. He reports being very thirsty ER workup CT head was negative. Blood sugars was elevated 445 Ketones Quant: 3.7. Tele neuro was consulted. His evaluation NIHSS was 1, his recomm endations possible TIA versus metabolic encephalopathy. 10/02 patient tested positive for COVID-19. Negative for influenza a and B and strep. No fevers overnight room. Patient alert oriented x3. waiting for blood cultures. Given to extensive sinuitis we will get CT maxillofacial without contrast. 10/03/2024 patient is is clinically stable for discharge. No focal or sensory deficits afebrile. Patient was instructed on insulin regimen to be compliance. Avoid skipping meals. Patient will need to follow-up with PCP we will need a ENT referral discharged with oral antibiotics for 10 days [id number] p.o. b.i.d.. 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 flaca Hull 2-3 days, will need ENT referral PROCEDURES: none IMAGING (S) report attached to summary : MRI brain, carotid artery ultrasound, maxillofacial CAT scan MICROBIOLOGY: report attached to summary; ACTIVITY: Ad simth HOME MEDICATIONS remain the same NEW MEDICATIONS Lantus 30 units subQ daily Humalog five-10 units t.i.d. before meals as directed by Dr. Roberson prescription written by Dr. Roberson TEACHING: Compliance with insulin regimen avoid skipping meals. One thousand eight hundred ADA carb consistent diet patient was instructed on self quarantine for three more days were mask when he is in public. Prevention hand washing Emergency instructions: The patient was instructed to present to the nearest Emergency Department or call 911 should their symptoms return or worsen. Discharge Instructions: REASON: stroke symptoms ORDERING PHYSICIAN: NATIVIDAD ROSAS DO PROCEDURE: BRAIN WO - MR BRAIN WO CON EXAM: MR Brain without Intravenous Contrast. CLINICAL HISTORY: Stroke. TECHNIQUE: Magnetic resonance images of the brain without intravenous contrast in multiple planes. CONTRAST: None. COMPARISON: 10/01/2024. FINDINGS: BRAIN: No restricted diffusion to indicate acute infarction. No intracranial mass or hemorrhage. No midline shift or extra-axial fluid collection. No cerebellar tonsillar ectopia. No abnormal enhancement. The central arterial and venous flow voids are patent. VENTRICLES: No hydrocephalus. ORBITS: The orbits are normal. SINUSES AND MASTOIDS: Extensive air-fluid levels in the bilateral maxillary and ethmoid sinuses suggest sinusitis. BONES: No acute fracture or focal osseous lesion. COMPARISON: Findings similar to CT head 10/01/2024. IMPRESSION: 1. No acute findings. 2. Extensive air-fluid levels in the bilateral maxillary and ethmoid sinuses suggest sinusitis. REASON: dizziness ORDERING PHYSICIAN: AMBERLY GELLER NP PROCEDURE: CAROTID - US CAROTID DUPLEX EXAMINATION: DUPLEX ULTRASOUND EXAMINATION OF THE BILATERAL CAROTID AND VERTEBRAL ARTERIES. CLINICAL HISTORY: Dizziness. COMPARISON: MRI brain without contrast from the same day. TECHNIQUE: Real-time ultrasound scan of the bilateral carotid and vertebral arteries, 2-D grayscale, with color Doppler flow and spectral waveform analysis. FINDINGS: Color and spectral Doppler interrogation of the carotid vessels on the right demonstrate peak systolic velocities as follows: CCA (Proximal and distal): 118 and 112 cm/s respectively. Bulb: 86 cm/s. ECA: 145 cm/s. ICA (Proximal, mid, and distal): 72, 110, and 96 cm/s respectively. Vertebral artery demonstrates antegrade flow: 70 cm/s. Right ICA/CCA ratio: 0.9 Peak systolic velocities on the left are as follows: CCA (Proximal and distal): 90 and 120 cm/s respectively. Bulb: 112 cm/s. ECA: 130 cm/s. ICA (Proximal, mid, and distal): 108, 86, and 102 cm/s respectively. Vertebral artery demonstrates antegrade flow: 72 cm/s. Left ICA/CCA ratio: 0.9 Both the common carotid arteries and their branches reveal mild intimal thickening. There are calcified plaques in the bilateral carotid bulb without significant stenosis. IMPRESSION: Mild intimal thickening in the bilateral carotid arteries and their branches. Calcified plaques in the bilateral carotid bulb without significant stenosis. There is no significant flow limiting lesions in the remainder of the arteries. EXAMINATION: CT Maxillofacial Without IV contrast CLINICAL HISTORY: Patient presents with suspected extensive sinusitis. COMPARISON: None provided. TECHNIQUE: Axial computed tomography images of the face without intravenous contrast. Sagittal and coronal reformatted images were generated. CONTRAST: None. FINDINGS: FACIAL BONES/ORBITS: No acute fracture or aggressive appearing osseous lesion. The mandible is intact. The orbits are normal. No retrobulbar hematoma or mass. PARANASAL SINUSES AND NASAL CAVITY: Extensive mucosal thickening in the bilateral maxillary sinuses with bilateral maxillary ostial obstruction and occlusion of the ostiomeatal units. Polypoidal extension of the mucosal thickening from the left maxillary sinus into the left middle meatus with further extension into the left nasal cavity. Mucosal thickening in bilateral ethmoid sinuses involving both anterior and posterior ethmoid air cells. 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 Bilateral inferior turbinate hypertrophy. Minimal deviation of the nasal septum toward the left. SOFT TISSUES: No radiopaque foreign body or focal fluid collection. BONES: Multilevel degenerative changes in the spine. IMPRESSION: Extensive bilateral maxillary sinus mucosal thickening with maxillary ostial obstruction and ostiomeatal unit occlusion. Polypoidal extension from the left maxillary sinus into the left middle meatus and left nasal cavity. Mucosal thickening in anterior and posterior ethmoid air cells bilaterally. 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 Bilateral inferior turbinate hypertrophy and minimal nasal septal deviation to the left. Home Medications: Reported Medications Rosuvastatin Calcium (Rosuvastatin Calcium) 5 Mg Tablet, 5 MG PO DAILY, TAB 10/01/24 Aspirin (Aspirin) 81 Mg Tab.chew, 1 TAB PO DAILY for 30 Days, #30 TAB 0 Refills 10/01/24 Insulin Glargine,Hum.rec.anlog (Lantus Solostar) 100 Unit/Ml (3 Ml) Insuln.pen, 15 UNIT SQ BID for 30 Days, ML 0 Refills 10/01/24 Cholecalciferol (Vitamin D3) (Vitamin D3) 125 Mcg (5000 Unit) Tablet, 1 TAB PO DAILY for 30 Days, #30 TAB 0 Refills 10/01/24 [place]-3/Dha/Epa/Fish Oil (Fish Oil 1,000 mg Softgel) 1,000 Mg (120 Mg-180 Mg) Capsule, 1 CAP PO DAILY for 30 Days, #60 CAP 0 Refills 10/01/24 Empagliflozin (Jardiance) 25 Mg Tablet, 1 TAB PO DAILY for 30 Days, #30 TAB 0 Refills 10/01/24 Metformin HCl (Metformin HCl) 1,000 Mg Tablet, 1 TAB PO BID for 30 Days, #60 TAB 0 Refills 10/01/24 New Medications: Amoxicillin/Potassium Clav (Amox Tr-K Clv 875-125 mg Tab) 875 Mg-125 Mg Tablet 1 TAB PO BID for 10 Days, #20 TAB 0 Refills Insulin Glargine,Hum.rec.anlog (Lantus Solostar) 100 Unit/Ml (3 Ml) Insuln.pen 30 UNIT SQ DAILY for 30 Days, #15 ML 0 Refills Insulin Lispro (Humalog Kwikpen) 200 Unit/Ml (3 Ml) Insuln.pen 5 UNIT SQ TIDAC for 30 Days, #1 SYRINGE Continued Medications: Aspirin (Aspirin) 81 Mg Tab.chew 1 TAB PO DAILY for 30 Days, #30 TAB 0 Refills Cholecalciferol (Vitamin D3) (Vitamin D3) 125 Mcg (5000 Unit) Tablet 1 TAB PO DAILY for 30 Days, #30 TAB 0 Refills Empagliflozin (Jardiance) 25 Mg Tablet 1 TAB PO DAILY for 30 Days, #30 TAB 0 Refills Insulin Glargine,Hum.rec.anlog (Lantus Solostar) 100 Unit/Ml (3 Ml) Insuln.pen 15 UNIT SQ BID for 30 Days, ML 0 Refills Metformin HCl (Metformin HCl) 1,000 Mg Tablet 1 TAB PO BID for 30 Days, #60 TAB 0 Refills [place]-3/Dha/Epa/Fish Oil (Fish Oil 1,000 mg Softgel) 1,000 Mg (120 Mg-180 Mg) Capsule 1 CAP PO DAILY for 30 Days, #60 CAP 0 Refills Rosuvastatin Calcium (Rosuvastatin Calcium) 5 Mg Tablet 5 MG PO DAILY, TAB Time spent arranging discharge: 31-60 minutes ATTESTATION BY PHYSICIAN I have seen and examined the patient. I reviewed the documentation, medical decision making, and treatment plan as noted by the mid-level provider above. I agree with the findings and plan of care. ELIU SONG MD, ELIZABETH NP Oct 03, 2024 09:06
[2024-10-03] MEDS: FISH OIL 1000 MG/CAP PO SCH (10:03)
[2024-10-03] MEDS: EMPAGLIFLOZIN 25MG TABLET PO SCH (10:12)
[2024-10-03 12:12] VITALS: BP 123/87; PULSE 100; RESP 20; TEMP 98.6
--- NOTE | 2024-10-03 15:21 | NUR ---
Pt left before RD could assess Addendum: 10/03/24 at [address] Amended: Links added.
--- NOTE | 2024-10-03 17:57 | PN ---
Endocrinology progress note DOS:10/03/24 this was late dictation. subjective: 1430 MRI was negative for stroke. Patient had fevers 101.5 glucose are improving. Home diabetic regimen:metformin 500 mg bid and jardiance 25 mg daily. previous he used to be on insulin but non-compliant. he has lost 30 lbs weight likely due to uncontrolled dm-2 vs other etiology. thyroid function is normal. TSH 1.8 and vitamin b 12 >400 REVIEW OF SYSTEMS a 12 point ROS was obtained and ROS negative PAST MEDICAL HISTORY: [ ] Diabetes, hyperlipidemia, hypertension PAST SURGICAL HISTORY: [ ] Negative PAST SOCIAL HISTORY: [ ] Denies smoking tobacco products and alcohol use FAMILY HISTORY: [ ] Diabetes Coded Allergies: No Known Drug Allergies (Unverified Allergy, Unknown, 10/01/24) PHYSICAL EXAM GENERAL APPEARANCE: The patient is awake, alert, and oriented, in no acute cardiopulmonary distress. NEUROLOGICAL: Cranial nerves II-XII grossly intact. Motor is 5/5 in bilateral upper and lower extremities proximal to distal. No sensory deficits. HEENT: Face is symmetric. Pupils are equal and reactive. Extraocular movements are intact. NECK: Supple. No JVD. No thyromegaly. No submental, submandibular, pre- /postauricular, occipital or supraclavicular lymphadenopathy. CHEST: Normal chest expansion. No Telemetry. LUNGS: Absence of any rales, rhonchi or any wheezing. CARDIOVASCULAR: Regular. S1 and S2 normal. No appreciable rubs, murmurs or gallops. ABDOMEN: Soft, nontender, and nondistended. There is no rebound, voluntary guarding, or rigidity. : Deferred. No Castillo. EXTREMITIES: Non-edematous and not cyanotic. No clubbing. Good capillary refill. SKIN: No skin breakdown. ASSESSMENT: uncontrolled DM type II hyperglycemia POA Home diabetic regimen:metformin 500 mg bid and jardiance 25 mg daily. previous he used to be on insulin but non-compliant. he has lost 30 lbs weight likely due to uncontrolled dm-2 vs other etiology. thyroid function is normal. SIRs without organ dysfunction POA suspecting Sepsis POA febrile syndrome POA UTI POA Metabolic encephalopathy POA TIA rule out CVA POA PLAN: continue lantus 15 units bid and adjust for fasting glucose. increase Regular insulin to 9 units before meals three times daily and adjust for post-prandial glucose. Continue medium dose sliding scale insulin. Monitor glucose q x 6 hourly. Continue carb consistent diet. Keep glucose less than 180 mg/dl. Patient will need lantus 30 units daily and humalog 5 - 10 units tid before meals at discharge. insulin and supplies prescriptions given to nurse. he is already scheduled with me in clinic in 1-2 weeks. Vitals/Labs Vital Signs Date Time Temp Pulse Resp B/P (MAP) Pulse Ox O2 Delivery O2 Flow Rate FiO2 10/03/24 12:12 98.6 100 20 123/87 98 Room Air 10/02/24 20:00 0 21 Medications Current Medications Lactated Ringer's 1,000 ml @ 0 mls/hr ONCE ONCE IV Last administered on 10/01/24at 12:08; Start 10/01/24 at 12:00; Stop 10/01/24 at 12:01; Status DC Insulin Human Regular 5 unit ONCE ONCE IV Last administered on 10/01/24at 12:12; Start 10/01/24 at 12:00; Stop 10/01/24 at 12:01; Status DC Famotidine 20 mg BID PO Last administered on 10/03/24at 10:12; Start 10/01/24 at 21:00; Stop 10/03/24 at 14:54; Status DC Acetaminophen 650 mg Q4H PRN PO Last administered on 10/01/24at 21:38; Start 10/01/24 at 14:30; Stop 10/03/24 at 14:54; Status DC Ondansetron HCl 4 mg Q6H PRN IVP; Start 10/01/24 at 14:30; Stop 10/03/24 at 14:54; Status DC Insulin Human Regular INSULIN SLIDING SCAL... ACHS SQ Last administered on 10/02/24at 17:46; Start 10/01/24 at 16:30; Stop 10/02/24 at 23:23; Status DC Potassium Chloride 100 ml @ 100 mls/hr AD PRN IV; Start 10/01/24 at 14:30; Stop 10/03/24 at 14:54; Status DC Potassium Chloride 20 meq AD PRN PO; Start 10/01/24 at 14:30; Stop 10/03/24 at 14:54; Status DC Potassium Chloride 20 meq AD PRN PO; Start 10/01/24 at 14:30; Stop 10/03/24 at 14:54; Status DC Magnesium Sulfate 50 ml @ 0 mls/hr PROTOCOL PRN IV; Start 10/01/24 at 14:30; Stop 10/03/24 at 14:54; Status DC Hydralazine HCl 20 mg Q4H PRN IV; Start 10/01/24 at 14:30; Stop 10/03/24 at 14:54; Status DC Lactulose 20 gm BID PRN PO; Start 10/01/24 at 14:30; Stop 10/03/24 at 14:54; Status DC Ceftriaxone Sodium 2 gm ONCE ONCE IVPB Last administered on 10/01/24at 15:01; Start 10/01/24 at 15:00; Stop 10/01/24 at 15:01; Status DC Ceftriaxone Sodium 1 gm Q24H IVPB Last administered on 10/02/24at 15:57; Start 10/02/24 at 15:00; Stop 10/03/24 at 14:54; Status DC Sodium Chloride 1,000 ml @ 75 mls/hr [id number] IV Last administered on 10/01/24at 20:53; Start 10/01/24 at 15:30; Stop 10/02/24 at 11:35; Status DC Insulin Glargine 15 units DAILY SQ Last administered on 10/02/24at 08:29; Start 10/02/24 at 09:00; Stop 10/02/24 at 11:57; Status DC Insulin Human Regular 3 unit TIDAC SQ Last administered on 10/02/24at 17:48; Start 10/02/24 at 11:30; Stop 10/02/24 at 23:23; Status DC Empaglifozin 25 mg DAILY PO Last administered on 10/03/24at 10:12; Start 10/03/24 at 09:00; Stop 10/03/24 at 14:54; Status DC Home Med (Cholecalciferol (Vitamin D3) (Vitamin D3... DAILY PO; Start 10/03/24 at 09:00; Stop 10/03/24 at 14:54; Status DC Miscellaneous Medication 15 unit BID SQ; Start 10/02/24 at 21:00; Stop 10/02/24 at 11:53; Status DC Fish Oil 1,000 mg DAILY PO Last administered on 10/03/24at 10:03; Start 10/03/24 at 09:00; Stop 10/03/24 at 14:54; Status DC Atorvastatin Calcium 10 mg HS PO Last administered on 10/02/24at 20:04; Start 10/02/24 at 21:00; Stop 10/03/24 at 14:54; Status DC Insulin Glargine 15 units BID SQ Last administered on 10/03/24at 10:24; Start 10/02/24 at 21:00; Stop 10/03/24 at 14:54; Status DC Insulin Human Regular 5 unit TIDAC SQ Last administered on 10/03/24at 10:25; Start 10/03/24 at 07:30; Stop 10/03/24 at 14:54; Status DC Insulin Human Regular INSULIN SLIDING SCAL... ACHS SQ; Start 10/03/24 at 07:30; Stop 10/03/24 at 14:54; Status DC CLARITA GALE MD Oct 03, 2024 17:57
== END 2024-10-03 14:00 | disposition home or self-care (01) | DRG 871 ==
LOC: EDH 10:55 → EDHIP 14:17 → OBSVTOIN 14:17 → INTOOBSV 14:17 → 2AH 17:51
PROVIDERS: ADMIT Internal Medicine; ATTEND Internal Medicine
DX: A41.9 Sepsis, unspecified organism (principal); G93.41 Metabolic encephalopathy; U07.1 COVID-19; N39.0 Urinary tract infection, site not specified; E11.65 Type 2 diabetes mellitus with hyperglycemia; D64.9 Anemia, unspecified; E78.00 Pure hypercholesterolemia, unspecified; G51.0 Bell's palsy; I10 Essential (primary) hypertension; Z79.4 Long term (current) use of insulin; Z79.84 Long term (current) use of oral hypoglycemic drugs; Z83.3 Family history of diabetes mellitus; Z86.73 Personal history of transient ischemic attack (TIA), and cerebral infarction without residual deficits; Z91.148 Patient's other noncompliance with medication regimen for other reason
CPT/HCPCS: 36415; 70450; 70486; 70551; 71045; 80048; 80053; 80061; 81001; 82010; 82140; 82550; 82607; 82728; 82948; 83036; 83605; 83735; 84443; 84484; 85025; 85610; 85730; 87040; 87426; 87804; 87880; 92522; 92610; 93005; 93880; 96374; 99291; G0378; J0696; J1815; J7120

== ENCOUNTER → 2024-10-20 | Emergency (ER) | payer OTHER ==
[~2024-10-20] VITALS: Ht 170.2 cm; Wt 65.8 kg
[~2024-10-20] MED LIST: AMOX1TAB16 PO; ASPI-1197 PO; CALC-866 PO; EMPA25TA PO; INSU3INS3 SQ; METF-446 PO; OMEG100033 PO; ROSU5TAB51 PO
[2024-10-20 11:51] VITALS: TEMP 97.6
--- NOTE | 2024-10-20 12:01 | EKG ---
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
[2024-10-20 12:24] LABS: IMMATURE GRANULOCYTE ABSOLUTE 0.02 K/uL (0-1); NUCLEATED RED BLOOD CELLS 0.0 % (0.0-0.19); PLATELET COUNT (AUTO) 234 K/uL (130-400); RED BLOOD CELL COUNT(AUTO) 4.11 MIL/uL (4.50-6.20); RED CELL DISTRIBUTION WIDTH 15.7 % (11.0-15.5); WHITE BLOOD COUNT (AUTO) 5.8 K/uL (4.8-10.8)
[2024-10-20 12:34] LABS: CREATININE 0.8 mg/dL (0.5-1.3); GLOMERULAR FILTR. RATE CALC 99.0 mL/min (>90); GLUCOSE,RANDOM 144.0 mg/dL (70-105); SODIUM SERUM 140.0 mmol/L (136-145); UREA NITROGEN, BLOOD 22.0 mg/dL (7-18)
--- NOTE | 2024-10-20 12:52 | HMCIMG ---
EXAM: XR Chest, 1 View(s). CLINICAL HISTORY: 64 year old male with shortness of breath. COMPARISON: XR Chest dated 10/01/2024. FINDINGS: LUNGS: No consolidation. PLEURAL SPACES: No pleural effusion or pneumothorax. HEART: The heart size is normal. BONES: No acute osseous abnormality. IMPRESSION: 1. No acute findings. /[place]
--- NOTE | 2024-10-20 13:04 | ERN ---
ED Note History of Present Illness Stated Complaint: RT FOOT SWELLING Chief Complaint: LOWER EXTREMITY EDEMA Time Seen by MD: 11:46 Time Seen by Midlevel: 11:50 Dictation: 64-year-old male with a history of hypertension, diabetes, cholesterol complaini ng of bilateral lower leg swelling and a black spot" on his great toe. Patient denies any trauma to the toe. Denies having any shortness a breath, cough, congestion, dyspnea. 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 10/03/24 Reported Medications Rosuvastatin Calcium (Rosuvastatin Calcium) 5 Mg Tablet, 5 MG PO DAILY, TAB 10/01/24 Aspirin (Aspirin) 81 Mg Tab.chew, 1 TAB PO DAILY for 30 Days, #30 TAB 0 Refills 10/01/24 Insulin Glargine,Hum.rec.anlog (Lantus Solostar) 100 Unit/Ml (3 Ml) Insuln.pen, 15 UNIT SQ BID for 30 Days, ML 0 Refills 10/01/24 Cholecalciferol (Vitamin D3) (Vitamin D3) 125 Mcg (5000 Unit) Tablet, 1 TAB PO DAILY for 30 Days, #30 TAB 0 Refills 10/01/24 [place]-3/Dha/Epa/Fish Oil (Fish Oil 1,000 mg Softgel) 1,000 Mg (120 Mg-180 Mg) Capsule, 1 CAP PO DAILY for 30 Days, #60 CAP 0 Refills 10/01/24 Empagliflozin (Jardiance) 25 Mg Tablet, 1 TAB PO DAILY for 30 Days, #30 TAB 0 Refills 10/01/24 Metformin HCl (Metformin HCl) 1,000 Mg Tablet, 1 TAB PO BID for 30 Days, #60 TAB 0 Refills 10/01/24 Past Medical History Past Medical History: Diabetes-Type II, High Cholesterol Surgical History: None Review of System Dictation Constitutional: Negative for fever,chills, and weight loss Eyes: Negative for injury, pain,redness, and discharge ENT: Negative for injury,pain or swelling Cardiovascular: Negative for chest pain, palpitations, positive for lower leg swollen Respiratory: Negative for shortness of breath, cough, and wheezing, Abdomen/GI: Negative for abdominal pain, nausea, vomiting, diarrhea, and constipation Back: Negative for injury and pain : Negative for injury, bleeding and discharge MS/Extremity: Negative for injury and deformity Skin: Negative for rash, and discoloration Neuro: Negative for headache, weakness, numbness, tingling, and seizure Psych: Negative for suicide ideation, homicidal ideation, and hallucinations Review of Systems: was completed Initial Vital Sign VS Vital Signs Date Time Temp Pulse Resp B/P (MAP) Pulse Ox O2 Delivery O2 Flow Rate FiO2 10/20/24 11:41 98.1 73 16 119/57 100 Room Air 0 10/20/24 11:51 21 Physical Exam Dictation General: awake, alert, NAD Head/Face: Normocephalic, atraumatic Eyes: PERRL, EOMI, vision at baseline ENT: oral cavity clear, TMs clear, no signs of infection Neck: Trachea midline, supple, no nuchal rigidity Cardiovascular: RRR, normal S1/S2, No MRGs, no JVD, pulse 1 pitting edema to bilateral lower legs around the ankle area Respiratory: CTAB, no respiratory distress, No rales or wheezes Abdomen: Soft, non-tender, non-distended, normal bowel sounds, no guarding or rebound. Skin: Warm, dry, normal turgor, no rash MS/Extremity: Pulses equal, no cyanosis, neurovascular intact, FROM Neuro: COAx4, GCS 15, strength 5/5, CN 2-12 intact, normal cerebellar exam, normal gait, Psych: Normal behavior, mood, and affect normal Results (Laboratory/Radiology) Laboratory/Radiology Laboratory Tests Test 10/20/24 12:18 White Blood Count 5.8 K/uL (4.8-10.8) Red Blood Count 4.11 MIL/uL (4.50-6.20) L Hemoglobin 10.5 g/dL (14.0-18.0) L Hematocrit 32.1 % (42-54) L Mean Corpuscular Volume 78.1 fL (79-99) L Mean Corpuscular Hemoglobin 25.5 pg (27.0-33.0) L Mean Corpuscular Hemoglobin Concent 32.7 g/dL (32.0-36.0) Red Cell Distribution Width 15.7 % (11.0-15.5) H Platelet Count 234 K/uL (130-400) Mean Platelet Volume 9.1 fL (7.5-10.5) Immature Granulocyte % (Auto) 0.3 % (0-1) Neutrophils (%) (Auto) 60.1 % (40.0-77.0) Lymphocytes (%) (Auto) 20.9 % (21.0-51.0) L Monocytes (%) (Auto) 14.1 % (3.0-13.0) H Eosinophils (%) (Auto) 4.3 % (0.0-8.0) Basophils (%) (Auto) 0.3 % (0.0-5.0) Neutrophils # (Auto) 3.5 K/uL (1.8-7.7) Lymphocytes # (Auto) 1.2 K/uL (1.0-4.8) Monocytes # (Auto) 0.8 K/uL (0.1-1.0) Eosinophils # (Auto) 0.25 K/uL (0.00-0.70) Basophils # (Auto) 0.02 K/uL (0.00-0.20) Absolute Immature Granulocyte (auto 0.02 K/uL (0-1) Nucleated Red Blood Cells 0.0 % (0.0-0.19) Sodium Level 140 mmol/L (136-145) Potassium Level 3.9 mmol/L (3.5-5.1) Chloride Level 106 mmol/L (101-111) Carbon Dioxide Level 26 mmol/L (21-32) Blood Urea Nitrogen 22 mg/dL (7-18) H Creatinine 0.8 mg/dL (0.5-1.3) Glomerular Filtration Rate Calc 99 mL/min (>90) Random Glucose 144 mg/dL (70-105) H Total Calcium 8.4 mg/dL (8.5-10.1) L B-Type Natriuretic Peptide 109 pg/mL (0-100) H Labs Reviewed?: Yes EKG Comment: EKGs did not 1156. Sinus rhythm at a rate of 72. No STEMI interpreted by ER MD X-RAY Comment: [facility] [address] [place] [id number] IMAGING REPORT Signed PATIENT: WOO MONROE MR#: [id number] : 1960 SEX: M AGE: 64 LOCATION: [facility] ORDER 54 STATUS: REG ER REPORT#: [id number] SERVICE 54 REASON: sob ORDERING PHYSICIAN: KIMI RUANO NP PROCEDURE: CXR1VW - CHEST 1VW EXAM: XR Chest, 1 View(s). CLINICAL HISTORY: 64 year old male with shortness of breath. COMPARISON: XR Chest dated 10/01/2024. FINDINGS: LUNGS: No consolidation. PLEURAL SPACES: No pleural effusion or pneumothorax. HEART: The heart size is normal. BONES: No acute osseous abnormality. IMPRESSION: 1. No acute findings. /[place] DICTATED BY: PRAVIN ARGUELLO MD DATE: 10/20/24 135 ELECTRONICALLY SIGNED BY: PRAVIN ARGUELLO MD DATE: 10/20/24 135 ED Course ED Course Orders Procedure Category Date Status Time Cbc With Differential LAB 10/20/24 Complete 11:55 Basic Metabolic Panel LAB 10/20/24 Complete 11:55 B-Type Natriuretic LAB 10/20/24 Complete Peptide 11:55 Chest 1vw RAD 10/20/24 Resulted 11:55 12 Lead Ekg Tracing- EKG 10/20/24 Complete Technical 11:55 Vital Signs Date Time Temp Pulse Resp B/P (MAP) Pulse Ox O2 Delivery O2 Flow Rate FiO2 10/20/24 11:51 97.5 79 18 119/71 97 Room Air* 0 21 10/20/24 11:41 98.1 73 16 119/57 100 Room Air 0 Medical Decision Making MDM MDM: 64-year-old male with a history of hypertension, diabetes, cholesterol complaining of bilateral lower leg swelling and a black spot" on his great toe. Patient denies any trauma to the toe. Denies having any shortness a breath, cough, congestion, dyspnea. Denies any pain to the extremities, denies any smoking, patient isn't bed-bound, patient states he has been active walking around. Low suspicion for DVT. CBC unremarkable, chemistry unremarkable, BNP is 100. EKGs shows no ST elevation or dysrhythmias. Chest x-ray shows no fluid retention. Patient has we will be discharged to follow up with his PCP. Patient has not appointment with the PCP today at 2:00 a.m.. We will give patient's blood work does show up to PCP. Differential diagnosis: Fluid retention, subungual hematoma, Rationale: Tests considered and ordered secondary to shared decision making include: Previous outside records reviewed: Old ER visits. Risk of complication and/or morbidity or mortality of patient management: None Medications-Per medication reconciliation Need for hospitalization: Patient does not meet criteria for hospitalization. Need for emergency major/minor surgery: No There are no social concerns with this patient. Prescription drug management Prescriptions will include symptomatic care Patient's prior external medical records from other ER visits were reviewed by me as indicated. Prior testing and results from previous visits were reviewed. Prior tests were taken into account with medical decision making and resource utilization, independent historian/historians were used to obtain complete medical history. I independently interpreted the test that were performed, results were reviewed by me and considered findings on radiology if ordered. Medical management and examination interpretation discussions were had by me with other qualified healthcare professionals as indicated for the patient's care. DX & DISP Disposition: Discharge Departure Impression: Primary Impression: Swelling of both lower extremities Additional Impression: Subungual hematoma Condition: Stable Additional Instructions: Please follow up with your PCP as scheduled today at two. Return to the hospital for any emergency. Referrals: SAKINA HAYS MD (PCP) Time of Disposition: 13:03 I have reviewed the case, and I agree with, Diagnosis and Plan KIMI RUANO NP Oct 20, 2024 13:04
[2024-10-20 13:05] VITALS: BP 117/52; PULSE 76; RESP 20; O2SAT 99
--- NOTE | 2024-10-20 13:11 | NUR ---
VERBAL ORDER FROM KIMI BRADFORD TO PRINT OUT LAB RESULTS TO TAKE FOR PCP APPT TODAY AT 1400.
== END ==
LOC: EDH 11:39
DX: M79.89 Other specified soft tissue disorders (principal); E11.9 Type 2 diabetes mellitus without complications; E78.00 Pure hypercholesterolemia, unspecified; Z79.4 Long term (current) use of insulin; Z79.82 Long term (current) use of aspirin; Z79.84 Long term (current) use of oral hypoglycemic drugs; Z79.899 Other long term (current) drug therapy
CPT/HCPCS: 36415; 71045; 80048; 83880; 85025; 93005; 99285